=== PATIENT | male | born 1950 | race Caucasian/White ===

== ENCOUNTER 2017-05-01 09:16 | Emergency (ER) | payer OTHER ==
[~2017-05-01] VITALS: Ht 177.8 cm; Wt 80.0 kg
[2017-05-01 09:18] VITALS: BP 129/80; PULSE 94; RESP 14; TEMP 98.2; O2SAT 98
[2017-05-01] MEDS ORDERED: AMLO5TAB2 PO (09:37)
--- NOTE | 2017-05-01 09:40 | PD ---
HPI Chief Complaint: Medical Clearance Time Seen by Provider: 09:31 Travel History International Travel<30 days: No Contact w/Intl Traveler<30days: No Traveled to known affect area: No History of Present Illness HPI 66-year-old male presents to emergency Department with complaint of erection 6 and half hours. Took Viagra at approximately 2 AM this morning. Has had one other time where he had to go to the emergency department to have medicine injected into his penis for prolonged erection secondary to Viagra. He is tried taking Sudafed and engaging in sexual intercourse with no relief of erection. Denies dysuria and is able to urinate. Denies abdominal pain, fever , vomiting. Rates pain 5/10. Describes it as a throbbing sensation. No known relieving or aggravating factors. No known allergies. History of hypertension and HIV. Dr. Hernández is PCP. Has no other medical complaints. No other modifying factors or associated signs and symptoms. PFSH Past Medical History Hypertension: Yes Past Surgical History Surgical History: No Previous Surgery Social History Alcohol Use: No Tobacco Use: Yes Substance Use: No Allergies-Medications (Allergen,Severity, Reaction): Coded Allergies: No Known Allergies (Unverified , 05/01/17) Reported Meds & Prescriptions Reported Meds & Active Scripts Active Reported Descovy (Emtricitabine-Tenofovir Alafenamide) 200-25 mg Tab 1 Tab PO DAILY Isentress (Raltegravir) 400 Mg Tab 400 Mg PO BID Amlodipine (Amlodipine Besylate) 5 Mg Tab 5 Mg PO DAILY Review of Systems Except as stated in HPI: all other systems reviewed are Neg Physical Exam Narrative GENERAL: Well-nourished, well-developed male patient, in no acute distress SKIN: Warm and dry. HEAD: Atraumatic. Normocephalic. EYES: Pupils equal and round. ENT: Mucosa pink and moist. NECK: Trachea midline. No lymphadenopathy. CARDIOVASCULAR: Regular rate and rhythm. No murmur appreciated. RESPIRATORY: No accessory muscle use. GASTROINTESTINAL: Abdomen soft and nondisteneded; nontender. Hepatic and splenic margins not palpable. Bowel sounds are active 4 quadrants. GENITOURINARY: Exam done in the presence of a nurse. UnCircumcised. Penis is erect. Testes descended bilaterally. No lesions or erythema. No urethral discharge. MUSCULOSKELETAL: No obvious deformities. No clubbing. No cyanosis. No edema. NEUROLOGICAL: Awake and alert. Oriented 3. No obvious cranial nerve deficits. Motor grossly within normal limits. Normal speech. Moves all extremities. 5/5 strength to all extremities. PSYCHIATRIC: Appropriate mood and affect; insight and judgment normal. Data Data Last Documented VS Vital Signs Date Time Temp Pulse Resp B/P (MAP) Pulse Ox O2 Delivery O2 Flow Rate FiO2 05/01/17 14:55 05/01/17 12:50 79 05/01/17 11:31 16 96 05/01/17 09:18 98.2 Orders Orders Phenylephrine Inj (Neosynephrine Inj)... (05/01/17 09:45) Phenylephrine Inj (Neosynephrine Inj)... (05/01/17 12:00) Phenylephrine Inj (Neosynephrine Inj)... (05/01/17 12:00) Lidocaine 1% Inj (50 Ml) (Xylocaine 1% I (05/01/17 14:00) Ed Discharge Order (05/01/17 14:25) [facility] Medical Decision Making Medical Screen Exam Complete: Yes Emergency Medical Condition: Yes Medical Record Reviewed: Yes Differential Diagnosis Priapism, prolonged erection, medical clearance Narrative Course 66-year-old male physical exam consistent with priapism 6 and half hours secondary to Viagra. Phenylephrine ordered. See Dr. Katz note for injections of phenylephrine. 1328: Patient still with erection after second dose of phenylephrine. See Dr. Song's note for continued care of priapism. Diagnosis Primary Impression: Priapism Referrals: Primary Care Physician Patient Instructions: General Instructions, Priapism (ED) Additional Instructions: Follow-up with urology Follow-up with primary care provider Return to the emergency department immediately with worsening of symptoms Med/Other Pt SpecificInfo: No Change to Meds, No Meds Exist/No RX given Disposition: 01 DISCHARGE HOME Condition: Stable EvelynealonzoAliya WILSON May 01, 2017 09:40
[2017-05-01] MEDS ORDERED: RALT400 PO (09:41)
[2017-05-01] MEDS ORDERED: EMTR1TAB4 PO (09:41)
[2017-05-01] MEDS ORDERED: PHENYLEPHRINE INJ 0.5 MG, SODIUM CHLORIDE 0.9% INJ 0.95 ML in SYRINGE/BAG 1 EA I-CAVITARY ONE ×6 (09:45→12:00)
[2017-05-01 11:31] VITALS: BP 146/81; PULSE 86; RESP 16; O2SAT 96
[2017-05-01 12:50] VITALS: BP 141/84; PULSE 79
[2017-05-01] MEDS ORDERED: LIDOCAINE HCL 1% 50 ML VIAL INFIL ONE (14:00)
--- NOTE | 2017-05-01 14:25 | PD ---
HPI Chief Complaint: Medical Clearance Time Seen by Provider: 09:31 Travel History International Travel<30 days: No Contact w/Intl Traveler<30days: No Traveled to known affect area: No History of Present Illness HPI 66-year-old male came to the emergency room with a persistent erection that was painful. Patient says he's had it for past 6 hours or so. Patient is HIV positive. He injected tri-mix into his penis last night for erection and since then he has not had the penis go down. He was uncomfortable. He was initially seen by my nurse practitioner whom I was supervising. Given his symptoms I decided to get involved for the procedures. Patient has history of HIV. He is on antiretroviral medications. He had a similar condition about 2 years ago where he required injection into his penis for the priapism which was done in [place]. [facility] Past Medical History Narrative Medical List of his past medical, surgical, social and family history is reviewed from the nursing note. Hypertension: Yes Immune Disorder: Yes (HIV +) Past Surgical History Surgical History: No Previous Surgery Social History Alcohol Use: No Tobacco Use: Yes Substance Use: No Allergies-Medications (Allergen,Severity, Reaction): Coded Allergies: No Known Allergies (Unverified , 05/01/17) Comments No known drug allergies. Reported Meds & Prescriptions Reported Meds & Active Scripts Active Reported Descovy (Emtricitabine-Tenofovir Alafenamide) 200-25 mg Tab 1 Tab PO DAILY Isentress (Raltegravir) 400 Mg Tab 400 Mg PO BID Amlodipine (Amlodipine Besylate) 5 Mg Tab 5 Mg PO DAILY Narrative Medication List of his home medications reviewed from the nursing note. Review of Systems Except as stated in HPI: all other systems reviewed are Neg Genitourinary: Positive: Other (priapism) Physical Exam Narrative GENERAL: Awake, alert, anxious, moderate distress SKIN: Focused skin assessment warm/dry. HEAD: Atraumatic. Normocephalic. EYES: Pupils equal and round. No scleral icterus. No injection or drainage. ENT: No nasal bleeding or discharge. Mucous membranes pink and moist. NECK: Trachea midline. No JVD. CARDIOVASCULAR: Regular rate and rhythm. No murmur appreciated. RESPIRATORY: No accessory muscle use. Clear to auscultation. Breath sounds equal bilaterally. GASTROINTESTINAL: Abdomen soft, non-tender, nondistended. Hepatic and splenic margins not palpable. : Priapism, uncircumcised MUSCULOSKELETAL: No obvious deformities. No clubbing. No cyanosis. No edema. NEUROLOGICAL: Awake and alert. No obvious cranial nerve deficits. Motor grossly within normal limits. Normal speech. PSYCHIATRIC: Appropriate mood and affect; insight and judgment normal. Data Data Last Documented VS Vital Signs Date Time Temp Pulse Resp B/P (MAP) Pulse Ox O2 Delivery O2 Flow Rate FiO2 05/01/17 14:55 05/01/17 12:50 79 05/01/17 11:31 16 96 05/01/17 09:18 98.2 Orders Orders Phenylephrine Inj (Neosynephrine Inj)... (05/01/17 09:45) Phenylephrine Inj (Neosynephrine Inj)... (05/01/17 12:00) Phenylephrine Inj (Neosynephrine Inj)... (05/01/17 12:00) Lidocaine 1% Inj (50 Ml) (Xylocaine 1% I (05/01/17 14:00) Ed Discharge Order (05/01/17 14:25) [facility] Medical Decision Making Medical Screen Exam Complete: Yes Emergency Medical Condition: Yes Medical Record Reviewed: Yes Differential Diagnosis Priapism Narrative Course 2:20 PM after multiple attempts of phenylephrine injection and unsuccessful I decided to drain both the corpora cavernosa with 18-gauge needle. Patient tolerated the procedure well. Eventually this resulted in success. I will discharge him home. Please refer to my procedure notes. Procedures Procedure Narrative Phenylephrine injection into the penis: 3 separate sets of 1 mL of phenylephrine was injected into the penis at 3 different occasions. The base of the penis was cleaned with ChloraPrep each time. 0.5 mL of 500 g per mL of phenylephrine that was diluted in normal saline was injected through a tuberculin syringe and needle into each corpora cavernosa after penetrating the tunica albuginea. There was a blood return noticed prior to getting the medication injected. Patient tolerated the procedure well overall but at the end of each 3 successive injections the priapism persisted. Draining corpora cavernosa: Due to the failure of phenylephrine injection I decided to drain the corpora cavernosa. Patient was explained this procedure and implied consent was obtained. Once again the base was cleaned with ChloraPrep and 1% of lidocaine 4 mL was infiltrated at the base of the penile skin. 18-gauge needle attached to 35 cc syringe was introduced into the corpora cavernosa and both corpora cavernosa was drained. Total of 75 mL of blood was aspirated. This instantly. The penis flaccid. Patient had instant relief. Patient tolerated the procedure well. EKG Prior to Arrival: No Diagnosis Primary Impression: Priapism Referrals: Primary Care Physician Patient Instructions: General Instructions, Priapism (ED) Additional Instructions: Follow-up with urology Follow-up with primary care provider Return to the emergency department immediately with worsening of symptoms. Follow-up with your urologist. Do not use Trimix again. Disposition: 01 DISCHARGE HOME Condition: Stable Castillo Song MD May 01, 2017 14:25
== END 2017-05-01 14:57 | disposition home or self-care (01) ==
LOC: NEPD 09:16
DX: N48.30 Priapism, unspecified (principal)
CPT/HCPCS: 54235; 99283; J2370; 96365; 96366; 96372